=== PATIENT | female | born 1970 | race Asian ===

== ENCOUNTER 2018-03-28 16:04 | Emergency (ER) | payer OTHER ==
[~2018-03-28] VITALS: Ht 160 cm; Wt 55.0 kg
[2018-03-28] MEDS ORDERED: TETRACAINE/BENZOCAINE/BUTAMBEN 20 GM SPRAY MM ONE (16:45)
[2018-03-28] MEDS ORDERED: TRANEXAMIC ACID 1,000 MG/10 ML IV ONE (16:45)
[2018-03-28 17:09] LABS: BASOPHILS % 0.5 % (0.0-2.0); EOSINOPHILS % 1.2 % (0.0-5.0); HEMATOCRIT. 43.1 % (36.0-48.0); HEMOGLOBIN. 14.5 g/dL (12.0-16.0); LYMPHOCYTES % 15.4 % (20.0-50.0); MEAN CORPUSCULAR HEMOGLOBIN 29.3 pg (28.0-32.0); MEAN CORPUSCULAR VOLUME 86.9 fL (81.0-99.0); MEAN PLATELET VOLUME 8.5 fl (7.4-10.4); MONOCYTES % 5.4 % (2.0-8.0); NEUTROPHILS % 77.5 % (40.0-76.0); PLATELET 237 x1000/uL (130-400); RED BLOOD CELL COUNT 4.96 mill/uL (4.2-5.4)
[2018-03-28 17:15] LABS: CHLORIDE 102 mEq/L (98-107)
[2018-03-28 17:21] LABS: HCG SCREEN NEGATIVE
[2018-03-28 17:22] LABS: INR 1.1; PROTHROMBIN TIME 10.9 sec (9.4-11.6)
[2018-03-28] MEDS ORDERED: CLONIDINE 0.1MG TABLET PO ONE (19:45)
[2018-03-28 19:59] VITALS: BP 166/104
== END 2018-03-28 20:10 | disposition home or self-care (01) ==
LOC: ER 16:04
DX: R04.0 Epistaxis (principal); I10 Essential (primary) hypertension
CPT/HCPCS: 30901; 36415; 80053; 84703; 85025; 85610; 85730; 86850; 86900; 86901; 96374; 99284; X7700; Z7610